=== PATIENT | male | born 1950 | race Caucasian/White ===

== ENCOUNTER 2017-06-03 23:06 | Inpatient (IN) | payer OTHER, BC ==
[2017-06-03] MEDS ORDERED: NS 1,000 ML IV ONE (23:27)
--- NOTE | 2017-06-03 23:27 | EDPHY ---
H & P Stated Complaint: SHAKEY,WEAK, HIGH IRREG HR, HTN, NOT EATING, FEVER AT [facility] HPI/ROS: HPI CHIEF COMPLAINT: Tachycardic, fever, from [facility] HISTORY OF PRESENT ILLNESS: This patient is 66 year male, resides at a local [facility] in a locked memory unit, they called his at home reports that he had a fever to 101.5 today. This associated fast heart rate and tachypnea. decided to bring him to the emergency room for evaluation. He is nonverbal. Upon arrival to the emergency room is noted to be tachycardic, tachypneic, nonverbal. reports that he does not appear to be in any distress. No reported vomiting or diarrhea. reports he did not really eat much today or yesterday. Past Medical History: Dementia, right bundle-branch block, history of AFib, nonverbal Past Surgical History: No recent surgery Social History: Denies daily use of drugs alcohol tobacco products. Dementia, resides in at [facility]. Family History: Noncontributory ROS REVIEW OF SYSTEMS: Review of systems extremely limited due the patient having dementia, and nonverbal. Exam Constitutional appears nontoxic triage nursing summary reviewed, vital signs reviewed, awake/alert. Vital signs are still noted to be tachycardic, tachypneic. Eyes normal conjunctivae and sclera, EOMI, PERRLA. HENT normal inspection, atraumatic, moist mucus membranes, no epistaxis, neck supple/ no meningismus, no raccoon eyes. Respiratory I do not appreciate any wheezing or rhonchi or rales, clear to auscultation bilaterally, normal breath sounds, no respiratory distress, no wheezing. Cardiovascular rate normal, regular rhythm, no murmur, no edema, distal pulses normal. Gastrointestinal large abdomen however, soft, non-tender, no rebound, no guarding, normal bowel sounds, no distension, no pulsatile mass. Genitourinary no CVA tenderness. Musculoskeletal no midline vertebral tenderness, full range of motion, no calf swelling, no tenderness of extremities, no meningismus, good pulses, neurovascularly intact. Skin pink, warm, & dry, no rash, skin atraumatic. No significant bilateral lower extremity edema. Neurologic awake, alert and oriented x 3, AAOx3, moves all 4 extremities equally, motor intact, sensory intact, CN II-XII intact, normal cerebellar, normal vision, nonverbal Psychiatric normal mood/affect. Heme/Lymph/Immune no lymphadenopathy. Differential Diagnosis: Includes but is not limited to in a particular order sepsis, dehydration, electrolyte disturbance, UTI, pneumonia, blood stream infection Medical Decision Making: Plan for this patient IV establishment fluid bolus, blood cultures, lactic acid, chest x-ray, urinalysis, check electrolytes, EKG for tachycardia and re-evaluate. Re-evaluation: EKG interpretation by me on record in [employer] system. Impression time of EKG 0029, this is sinus tachycardia rate of 123. Right bundle-branch block present. 0244AM: On re-examination at this time patient is noted to be tachycardic in the 140s. It is pretty regular indicating most likely a flutter. Two to 1 av block. The patient is not hypotensive. He is nonverbal. I did review his chest x-ray appears to be haziness in the left lower lobe concerning for pneumonia. Blood work has been reviewed. It is noted this patient had an initial elevated lactic acid. In the setting of tachycardia, elevated lactic acid and fever concerning for sepsis. Patient given 2 L normal saline up front due to sepsis however it was noted that his BNP is elevated. Will continue to gently hydrate. He has not been hypotensive. His x-ray does show cardiomegaly without infiltrate the left lower lung or haziness in the left lower lung. Concerning for pneumonia. Additionally is blood work shows a leukocytosis of 17,000. With a left shift. Concerning for infection. Blood cultures have been pulled. Lactic acid is been trended and is coming down after IV fluids. The patient was noted to be tachycardic upon arrival here however he now appears to be in a flutter with increase in his heart rate in the 140s. His EKG shows right bundle branch block with heart rate of 144 concerning for atrial flutter with a 2-1 av block. EKG interpretation by me on record in [employer] system. Impression time of EKG 2:33 a.m., this is atrial flutter to AV block. Rate of 144. Underlying right bundle-branch block present. Additionally on review his blood work his potassium was elevated however this is hemolyzed specimen. Will repeat his BMP. Additionally patient noted to have elevated troponin and BNP. I did order a CT angiogram of his chest due to hypoxia and tachycardia however the patient is somewhat difficult to manage due to his advanced dementia. He will not tolerate lying on the CT scan table. Nor does he allow us to put him on the CT scanner. He additionally refuses to wears pulse ox and takes it off often. He picks and pulls at his lines. Given how sick is I do not feel that we need to sedate him as I feel this would be greater risk given his tachycardia , sepsis, fever, white count. I feel this time we can forego his CT scan angiogram of his chest treat his atrial flutter, sepsis, pneumonia. Broad-spectrum antibiotics have been given. He has received IV fluids. The patient will need to be admitted the ICU was requires a large amount of attention given his underlying dementia and how sick he is. Of note. His lactic acid is improving. He is not hypotensive. Critical Care: Total Critical Care Time Spent Managing this Patient: 85Minutes. This time was spent Exclusively with this patient. This Care was exclusive of procedures. The Organ System/life at risk was cardiac, pulmonary This Patient was in Critical Condition because sepsis, acute febrile illness, hypoxia, tachycardia. 0258AM: Repeat chest x-ray shows cardiomegaly and pulmonary vascular congestion with pulmonary edema. Concerning for heart failure. I do not appreciate the left lower lobe infiltrate was on the previous x-ray. The patient is not hypoxic. He is in no respiratory distress. May need to give him IV Lasix at this time. 0259: Patient is very complex. History of dementia nonverbal. He cannot tell you where he hurts. Or how he feels. I do believe he is septic. I think it is probably from pneumonia. His urinalysis is still pending. He is in a flutter versus AFib on his EKG. Diltiazem has been started. Repeat chest x- ray shows cardiomegaly with pulmonary edema. Concerning for heart failure. He does have an elevated BNP. Most likely give him a dose of Lasix as well. Given how complex he is and limited mental state he will need to be admitted to the ICU. He often pulls at his IV lines and does not wear his pulse ox monitor. I updated his at bedside. Broad-spectrum antibiotics were given. 0334: I have consult the hospitalist service. Plan will be for admission for ICU care. Patient requires a lot of bedside nursing care. Additionally I have ordered him 40 mg IV Lasix due to the pulmonary edema and cardiomegaly seen on his chest x-ray. He has not been hypotensive I think he will benefit from the Lasix. Urinalysis still pending. However broad-spectrum antibiotics already been given. I believe this patient has a mixed picture sepsis versus decompensated heart failure picture Source: Patient - Personal History Current Tetanus/Diphtheria Vaccine: Yes - Medical/Surgical History Hx Asthma: No Hx Chronic Respiratory Disease: No Hx Diabetes: No Hx Cardiac Disease: No Hx Renal Disease: No Hx Cirrhosis: No Hx Alcoholism: No Hx HIV/AIDS: No Hx Splenectomy or Spleen Trauma: No Other PMH: sleep apnea,hyperlipidemia, AFIB, DEMENTIA - Social History Smoking Status: Never smoked Constitutional: Initial Vital Signs Temperature (C) 37.6 C 06/03/17 23:14 Heart Rate 125 H 06/03/17 23:14 Respiratory Rate 36 H 06/03/17 23:14 Blood Pressure 142/104 H 06/03/17 23:14 O2 Sat (%) 89 L 06/03/17 23:14 O2 Delivery Mode Room Air Allergies/Adverse Reactions: No Known Allergies Allergy (Unverified 06/03/17 23:12) Home Medications: Medication Instructions Recorded Donepezil HCl [Aricept 5 MG (*)] 10 mg PO DAILY 06/03/17 traZODone [traZODONE 50MG (*)] 50 mg PO HS 06/04/17 Medical Decision Making - Data Points Laboratory Results: Laboratory Results 06/03/17 23:50 06/04/17 02:55 Microbiology Results: MICROBIOLOGY 06/04/17 03:02 Nasal, Sinus - Swab Respiratory Panel (PCR) - Final No Organism Detected Medications Given: Enoxaparin Sodium (Lovenox) 120 mg SC BID@0600,1800 DELANEY Stop: 12/01/17 17:59 Last Admin: 06/04/17 19:21 Dose: 120 mg Haloperidol Lactate (Haldol Injection) 2 mg IVP Q6HRS PRN PRN Reason: Agitation Stop: 12/01/17 15:33 Last Admin: 06/04/17 17:51 Dose: 2 mg Piperacillin/Tazobactam/Dextrose (Zosyn 3.375 Gm (Premix)) 50 mls @ 100 mls/hr IV Q6HRS DELANEY PRN Reason: Protocol Stop: 07/04/17 07:59 Last Admin: 06/05/17 00:16 Dose: 50 mls Metoprolol Tartrate (Lopressor) 12.5 mg PO TID [facility] Stop: 12/01/17 16:59 Last Admin: 06/04/17 21:05 Dose: 12.5 mg Trazodone HCl (Trazodone) 50 mg PO HS [facility] Stop: 12/01/17 20:59 Last Admin: 06/04/17 21:05 Dose: 50 mg Discontinued Medications Digoxin (Lanoxin Injections) 300 mcg IVP ONCE ONE Stop: 06/04/17 04:43 Last Admin: 06/04/17 05:25 Dose: 300 mcg Diltiazem HCl (Cardizem 25 Mg/5 Ml Vial) 15 mg IVP EDNOW ONE Stop: 06/04/17 02:39 Last Admin: 06/04/17 02:53 Dose: 15 mg Furosemide (Lasix Injection) 40 mg IVP EDNOW ONE Stop: 06/04/17 03:34 Last Admin: 06/04/17 03:43 Dose: 40 mg Sodium Chloride (Ns) 1,000 mls @ 0 mls/hr IV EDNOW ONE; Wide Open PRN Reason: Protocol Stop: 06/03/17 23:28 Last Admin: 06/04/17 00:07 Dose: 1,000 mls Vancomycin/Sodium Chloride (Vancomycin 1 Gm (Premix)) 250 mls @ 250 mls/hr IV EDNOW ONE PRN Reason: Protocol Stop: 06/04/17 01:39 Last Admin: 06/04/17 00:54 Dose: 250 mls Piperacillin/Tazobactam/Dextrose (Zosyn (Premix)) 100 mls @ 200 mls/hr IV EDNOW ONE PRN Reason: Protocol Stop: 06/04/17 01:09 Last Admin: 06/04/17 02:36 Dose: 100 mls Sodium Chloride (Ns) 1,000 mls @ 0 mls/hr IV ONCE ONE PRN Reason: Wide Open Stop: 06/04/17 00:43 Last Admin: 06/04/17 00:54 Dose: 1,000 mls Diltiazem HCl 125 mg/ Dextrose 125 mls @ 0 mls/hr IV EDNOW ONE; Titrate PRN Reason: Protocol Stop: 06/04/17 02:39 Last Admin: 06/04/17 03:05 Dose: 125 mls Diltiazem HCl 125 mg/ Dextrose 125 mls @ 0 mls/hr IV CONT DELANEY; Per Protocol PRN Reason: Protocol Stop: 12/01/17 04:59 Last Admin: 06/04/17 21:46 Dose: 125 mls Vancomycin HCl 1.25 gm/ (Dextrose) 250 mls @ 166.667 mls/hr IV Q8H DELANEY Stop: 07/04/17 08:59 Last Admin: 06/04/17 10:39 Dose: Not Given Metoprolol Tartrate (Lopressor Injection) 5 mg IVP ONCE ONE Stop: 06/04/17 06:27 Last Admin: 06/04/17 06:44 Dose: 5 mg Departure - Departure Disposition: [facility] Inpatient Acute Clinical Impression: Lactic acidosis, Hypoxia, Tachycardia Dementia Qualifiers: Dementia type: unspecified type Dementia behavioral disturbance: with behavioral disturbance Qualified Code(s): F03.91 - Unspecified dementia with behavioral disturbance Pneumonia Qualifiers: Pneumonia type: due to unspecified organism Laterality: left Lung location: lower lobe of lung Qualified Code(s): J18.1 - Lobar pneumonia, unspecified organism Sepsis Qualifiers: Sepsis type: sepsis due to unspecified organism Qualified Code(s): A41.9 - Sepsis, unspecified organism Atrial flutter Qualifiers: Atrial flutter type: typical Qualified Code(s): I48.3 - Typical atrial flutter Pulmonary edema Qualifiers: Chronicity: acute Qualified Code(s): J81.0 - Acute pulmonary edema Condition: Critical
[2017-06-04 00:09] LABS: % IMMATURE GRANULYOCYTES 0.5 % (0.0-1.1); ABSOLUTE IMMATURE GRANULOCYTES 0.09 10^3/uL (0.00-0.10); ADD DIFF? NO; ADD MORPH? NO; ADD SCAN? NO; ATYPICAL LYMPHOCYTE FLAG 0 (0-99); FRAGMENT RBC FLAG 10 (0-99); HEMATOCRIT 48.7 % (40.0-51.0); HEMOGLOBIN 16.8 g/dL (13.7-17.5); LEFT SHIFT FLG 10 (0-99); LIPEMIA HEMOLYSIS FLAG 90 (0-99); MEAN CELL HEMOGLOBIN 32.7 pg (27.9-34.1); MEAN CELL HEMOGLOBIN CONCENTR. 34.5 g/dL (32.4-36.7); MEAN CELL VOLUME 94.7 fL (81.5-99.8); MEAN PLATELET VOLUME 9.5 fL (8.7-11.7); PLATELET CLUMPS FLAG 20 (0-99); PLATELET COUNT 157 10^3/uL (150-400); RED BLOOD CELL COUNT 5.14 10^6/uL (4.40-6.38); RED CELL DISTRIBUTION WIDTH 13.5 % (11.5-15.2)
[2017-06-04 00:21] LABS: ALANINE AMINOTRANSFERASE 47 IU/L (21-72); ALBUMIN 3.9 g/dL (3.5-5.0); ALKALINE PHOSPHATASE 60 IU/L (38-126); ASPARTATE AMINOTRANSFERASE 54 IU/L (17-59); BILIRUBIN,TOTAL 2.6 mg/dL (0.1-1.4); BILIRUBIN-CONJUGATED 1.1 mg/dL (0.0-0.5); BILIRUBIN-UNCONJUGATED 1.5 mg/dL (0.0-1.1); MAGNESIUM 2.1 mg/dL (1.6-2.3); TOTAL PROTEIN 7.5 g/dL (6.3-8.2)
[2017-06-04 00:22] LABS: INR 1.37 (0.83-1.16); PROTIME(PATIENT) 16.9 SEC (12.0-15.0)
[2017-06-04 00:30] LABS: TROPONIN I 0.083 ng/mL (0.000-0.034)
--- NOTE | 2017-06-04 00:31 | CPEKG ---
Heart Rate: 123 RR Interval: 488 P-R Interval: 140 QRSD Interval: 150 QT Interval: 348 QTC Interval: 498 P [place]: 64 QRS [place]: 119 T Wave [place]: -58 EKG Severity - ABNORMAL ECG - EKG Impression: SINUS TACHYCARDIA WITH IRREGULAR RATE 107-155 EKG Impression: RIGHT BUNDLE BRANCH BLOCK EKG Impression: PACs NOTED Electronically Signed By: Santos Benitez 06-Jun-2017 11:49:50
[2017-06-04] MEDS ORDERED: PIPERACILLIN/TAZO 4.5 GM/DEX 100 ML IV ONE (00:40)
[2017-06-04] MEDS ORDERED: VANCOMYCIN HCL/NORMAL SALINE 250 ML IV ONE (00:40)
[2017-06-04] MEDS ORDERED: NS 1,000 ML IV ONE (00:42)
[2017-06-04] MEDS ORDERED: IOPAMIDOL (ISOVUE 370) 100 ML BTL IV ONE (01:09)
[2017-06-04 01:25] LABS: ANION GAP 15 mEq/L (8-16); CALCIUM 9.3 mg/dL (8.5-10.4); CARBON DIOXIDE 21 mEq/l (22-31); CHLORIDE 106 mEq/L (97-110); CREATININE 1.1 mg/dL (0.7-1.3); GLOMERULAR FILTRATION RATE > 60; GLUCOSE 189 mg/dL (70-100); POTASSIUM 5.9 mEq/L (3.5-5.2); SODIUM 142 mEq/L (134-144); SPECIMEN HEMOLYSIS 189
[2017-06-04 01:43] LABS: CK-MB INTERPRETATION NEGATIVE (NEGATIVE)
--- NOTE | 2017-06-04 02:35 | CPEKG ---
Heart Rate: 144 RR Interval: 417 QRSD Interval: 154 QT Interval: 332 QTC Interval: 514 QRS [place]: 111 T Wave [place]: -57 EKG Severity - ABNORMAL ECG - EKG Impression: ATRIAL FLUTTER WITH 2:1 AV BLOCK EKG Impression: RBBB AND LPFB EKG Impression: ATRIAL FLUTTER IS NEW IN COMPARISON TO PRIOR ECG Electronically Signed By: Santos Benitez 06-Jun-2017 11:50:13
[2017-06-04] MEDS ORDERED: DILTIAZEM 25 MG/5 ML VIAL IVP ONE (02:38)
[2017-06-04] MEDS ORDERED: DILTIAZEM 125 MG in D5W 125 ML IV ONE (02:38)
[2017-06-04 03:08] LABS: ANION GAP 15 mEq/L (8-16); CALCIUM 8.3 mg/dL (8.5-10.4); CARBON DIOXIDE 19 mEq/l (22-31); CHLORIDE 111 mEq/L (97-110); GLOMERULAR FILTRATION RATE > 60; GLUCOSE 158 mg/dL (70-100); POTASSIUM 4.2 mEq/L (3.5-5.2); SODIUM 145 mEq/L (134-144)
[2017-06-04] MEDS ORDERED: FUROSEMIDE 40 MG/4 ML VIAL IVP ONE (03:33)
[2017-06-04 03:41] LABS: PROCALCITONIN 0.17 ng/mL (0.02-0.10)
[2017-06-04] MEDS ORDERED: HYDROCODONE/APAP 5/325 TAB PO PRN (04:11)
[2017-06-04] MEDS ORDERED: ONDANSETRON 4 MG/2 ML VIAL IVP PRN (04:11)
[2017-06-04] MEDS ORDERED: LORazepam 0.5 MG TAB PO PRN (04:11)
[2017-06-04] MEDS ORDERED: DIGOXIN 500 MCG/2 ML AMP IVP ONE (04:42)
[2017-06-04 05:48] LABS: ALANINE AMINOTRANSFERASE 48 IU/L (21-72); ALBUMIN 3.6 g/dL (3.5-5.0); ALKALINE PHOSPHATASE 59 IU/L (38-126); ANION GAP 19 mEq/L (8-16); ASPARTATE AMINOTRANSFERASE 43 IU/L (17-59); BILIRUBIN,TOTAL 2.3 mg/dL (0.1-1.4); CALCIUM 8.4 mg/dL (8.5-10.4); CARBON DIOXIDE 17 mEq/l (22-31); CHLORIDE 109 mEq/L (97-110); CREATININE 1.1 mg/dL (0.7-1.3); GLOMERULAR FILTRATION RATE > 60; GLUCOSE 179 mg/dL (70-100); MAGNESIUM 1.9 mg/dL (1.6-2.3); POTASSIUM 4.1 mEq/L (3.5-5.2); SODIUM 145 mEq/L (134-144)
[2017-06-04 05:53] LABS: CK-MB INTERPRETATION NEGATIVE (NEGATIVE); CREATINE KINASE-MB FRACTION 2.89 ng/mL (0.00-3.19)
[2017-06-04 06:04] LABS: % IMMATURE GRANULYOCYTES 0.4 % (0.0-1.1); ABSOLUTE IMMATURE GRANULOCYTES 0.06 10^3/uL (0.00-0.10); ADD DIFF? NO; ADD MORPH? NO; ADD SCAN? NO; ATYPICAL LYMPHOCYTE FLAG 0 (0-99); FRAGMENT RBC FLAG 0 (0-99); HEMOGLOBIN 14.7 g/dL (13.7-17.5); LEFT SHIFT FLG 10 (0-99); LIPEMIA HEMOLYSIS FLAG 80 (0-99); MEAN CELL HEMOGLOBIN 31.5 pg (27.9-34.1); MEAN CELL HEMOGLOBIN CONCENTR. 33.4 g/dL (32.4-36.7); MEAN CELL VOLUME 94.2 fL (81.5-99.8); MEAN PLATELET VOLUME 9.8 fL (8.7-11.7); PLATELET CLUMPS FLAG 40 (0-99); PLATELET COUNT 91 10^3/uL (150-400); RED BLOOD CELL COUNT 4.67 10^6/uL (4.40-6.38); RED CELL DISTRIBUTION WIDTH 13.6 % (11.5-15.2)
[2017-06-04] MEDS ORDERED: METOPROLOL TARTRATE 5 MG/5 ML INJ IVP ONE (06:26)
[2017-06-04 06:28] LABS: BILIRUBIN-UNCONJUGATED 1.3 mg/dL (0.0-1.1)
--- NOTE | 2017-06-04 06:53 | GHP ---
[f rep st] HISTORY AND PHYSICAL DATE OF ADMISSION: 06/04/2017 SOURCE: Patient with history of advanced dementia with dysphagia. His is at bedside and supplements history. Case discussed with ED provider. CHIEF COMPLAINT: Fever. HISTORY OF PRESENT ILLNESS: This is a 66-year-old gentleman with history of advanced dementia, who presents to the emergency department from [facility] with complaints of fever. The patient apparently has not been taking any oral intake for the past 24 hours where he normally has quite a healthy appetite. reports that when she arrived to see the patient that he did sound congested and had noisy breathing. He appeared to have some increased work of breathing in addition. She denies any known knowledge of nausea, vomiting, diarrhea. Patient normally is mostly nonverbal and unable to provide any history. Prior to her arrival, the patient was also noted to have a fast, irregular heartbeat into the 120s. He has known history of atrial fibrillation for many decades now. He is not on any anticoagulation. reports this is usually really well controlled and so no consideration for Coumadin. Patient's primary senior pricing analyst, Dr. Froylan Degroot. REVIEW OF SYSTEMS: Limited, secondary to patient's dementia. The patient is unable to provide any and is otherwise negative, except as noted above per the . ALLERGIES: No known drug allergies. HOME MEDICATIONS: Aricept, temazepam and Tylenol p.r.n. PAST MEDICAL HISTORY: Significant for dementia, atrial fibrillation, AMERICO, morbid obesity, history of right bundle branch block on EKG and history of syncope in April 2016 without recurrence, with a negative workup including echocardiogram. PAST SURGICAL HISTORY: None. FAMILY HISTORY: Mother with history of COPD. Daughter with history of MS. Father with history of CHF, in his 80s. Brother is healthy. SOCIAL HISTORY: Patient is . He currently resides at [facility]. He does not smoke, drink, or do drugs. CODE STATUS: DNI. is MDPOA and MOST form accompanies the patient, which notes limited intervention, but does desire for full cardiac resuscitation if needed. No intubation. PHYSICAL EXAM: VITAL SIGNS: On arrival to the ED, blood pressure 142/104, heart rate 125, respiratory rate 36, O2 saturation 89% on room air with temperature 37.6. Vitals in the unit: Blood pressure 117/86, heart rate is 150 , respiratory rate 33, O2 saturation is 95% on room air. GENERAL: No acute distress. Morbidly obese adult male, is lying quietly in bed. HEAD: Normocephalic, atraumatic. EYES: Limited extraocular muscle exam secondary to patient ability to follow instructions. Sclerae are clear. No conjunctival injection or scleral icterus. ENT: Mucous membranes might be slightly dry. No nasal discharge. Limited exam again secondary to patient's inability to follow instructions or desire to follow instructions. NECK: Supple. Trachea midline. CV: Tachycardic. Distant heart sounds. No chest tenderness to palpation apparent. RESPIRATORY: Unlabored breathing. Lungs clear to auscultation bilaterally. No wheezes, rales, or rhonchi. Diminished at the bases. Poor inspiratory effort and limited secondary to patient ability to follow instructions. ABDOMEN: Obese, soft, nontender to palpation. There is no apparent tenderness to palpation. Positive bowel sounds. : No Nieto in place. Normal external male genitalia. EXTREMITIES: Patient with nonpitting lower extremity edema, 1+ pedal pulses. NEURO: Grossly nonfocal. The patient is able to move all extremities independently. He has no facial drooping and limited secondary to patient's ability to follow instructions. PSYCH: Patient is mostly nonverbal, may answer a few yes/no answers, but otherwise limited ability to cooperate. LABORATORY STUDIES: WBC 17.26, H and H 16.8 and 48.7, MCV is 94.7, platelet count is 157, neutrophil percent 81.6%. No bandemia. PT 16.9, INR is 1.37, PTT is 27.0. Serum lactic acid 3.0, decreased down to 2.5 after intervention in the ER. Sodium is 142, potassium is 5.9, chloride is 106, CO2 is 21, anion gap 15, BUN is 22, creatinine is 1.1, GFR is greater than 60, glucose is 189, total bilirubin is 2.6. CK 306. Troponin 0.083. , lipase 49. Procalcitonin 0.17. Negative flu. Initial chest x-ray in the emergency department, reviewed by myself, shows some cardiomegaly with perihilar prominence and pulmonary vascular congestion, left lateral lower lungs with some haziness present. Repeat chest x-ray is slightly rotated showing cardiomegaly with increased pulmonary vascular congestion without focal consolidation. Final radiology report is pending. EKG, reviewed myself, showing A-flutter, right bundle branch and left posterior fascicular block. QTc 514. ASSESSMENT AND PLAN: A 66-year-old gentleman with history of advanced dementia and aphasia who presents following episode of fever and tachycardia [facility]. 1. Atrial flutter with rapid ventricular response. Patient is status post bolus of Cardizem and currently titrated up to maximum of 15 mg/hour. His heart rate remains in the 150s. Limited ability to assess for additional symptoms or cardiac symptoms including chest pain secondary to patient's advanced dementia. We will add a dose of IV digoxin. Hold off on anticoagulation. This was discussed with the patient's . He does not have a history of heart failure. He has been at increased risk for embolic event. However, at this time declines anticoagulation. 2. Sepsis. Patient meets criteria with leukocytosis, tachycardia, tachypnea and elevated lactate. Blood pressures at this time are acceptable. We will monitor closely with a Cardizem drip. Patient is status post 2 L of IV fluid with apparent decompensation in respiratory status, concerning for possibly a CHF component. He remains tachycardic with atrial flutter, rapid ventricular response. Blood cultures have been obtained. Patient is status post vancomycin and Zosyn in the emergency department for presumptive pneumonia given patient's reported history of symptoms from the . Awaiting urine sample. The patient will not tolerate a catheter placement. Additionally, attempts were made for patient to undergo CT evaluation for further delineation of possible infectious process. However, patient did not tolerate lying flat for this study. 3. Pneumonia. Continue with vancomycin and Zosyn at this time. 4. Hypoxia related to pneumonia versus pulmonary edema. We will continue to monitor. 5. Lactic acidosis. Continue to monitor lactates until less than 2. Status post IV fluids in the emergency department. 6. Hyperglycemia, nonfasting labs noted. Continue to monitor blood sugars. This patient will be nothing per mouth. 7. Hyperbilirubinemia in setting of systemic inflammatory response syndrome sepsis. Continue to monitor liver function tests. 8. Elevated BTNP. Patient without a previous history of congestive heart failure. He had an echocardiogram completed in 04/2016, which did not show any systolic or diastolic dysfunction. The patient received 40 mg of Lasix several hours after his 30 mL/kg bolus, given the patient's worsening respiratory status and concern for pulmonary edema. We will continue to monitor clinically. 9. Dementia. Continue Aricept. 10. Obstructive sleep apnea. Supplemental oxygen if tolerated. Patient no longer has been tolerating CPAP and this was previously discontinued. 11. Insomnia. Continue with temazepam p.r.n. 12. Fluid, electrolyte and nutrition. Status post 30 mL per kg. Replace electrolytes as needed. 13. Nutrition. Patient will be nothing per mouth at this time, as he is increasingly confused and unable to follow swallow assessment instructions. 14. Prophylaxis. Holding anticoagulation, sequential compression devices as tolerated. Discussed again with the regarding increased risk for thromboembolic events in setting of uncontrolled atrial flutter with rapid ventricular response. She desires to continue without anticoagulation as patient has previously been without and she is concerned regarding falls. CODE STATUS: Full. Cardiac resuscitation, no intubation at this time. is Kristie is MDPOA. DISPOSITION: The patient admitted to inpatient status in the ICU. He is acutely ill, requires some ICU care. CONSULTATIONS: Crit Care, ID and Cardiology in the morning. Addendum - Cardiology was consulted and case discussed with them in early . No additional recommendations for rate control, to continue cardizem, aware s/p digoxin bolus. may attempt beta papo or amiodarone but focus on treatment of sepsis. elevated HR acceptable as long as BPs maintained /[id number]/MODL MTDD
[2017-06-04] MEDS: PIPERACILLIN/TAZO 3.375 GM/DEX 50 ML IV SCH ×3 (08:23→17:51)
[2017-06-04] MEDS ORDERED: VANCOMYCIN 1.25 GM in D5W 250 ML IV SCH (09:00)
--- NOTE | 2017-06-04 13:57 | PDMN ---
Medical Necessity Medical necessity: est los >2 mn for aflutter w/RVR, sepsis, pna vs pulmonary edema, hyperglycemia, admit to ICU for IVF/abx, Cardizem gtt; comorbid advanced dementia, AFIB, AMERICO; per H&P & order 06/04/17
--- NOTE | 2017-06-04 14:01 | ASMTCMCOM ---
CM Note CM Note Notes: Chart reviewed. Patient admitted with pneumonia from [facility] where he resides. His is very involed. She reports he is brighter today than he has been in weeks. . He will likely dc back to [facility] upon dc. CM available should needs arise. Date Signed: 06/04/2017 02:01 PM Electronically Signed By:Christina Kim RN
[2017-06-04] MEDS: DILTIAZEM 125 MG in D5W 125 ML IV SCH ×2 (14:40→21:46)
[2017-06-04] MEDS ORDERED: OLANZapine DISINTEGR 5 MG TAB PO PRN (15:21)
--- NOTE | 2017-06-04 15:27 | HOSPPROG ---
Hospitalist Progress Note Assessment/Plan: * Rapid afib -still rapid rate despite IV diltiazem gtt -consult cardiology - d/w Dr. Tovar -anticoagulation declined by -CT chest attempt but patient unable to comply -check BLE US rule out DVT * Advanced dementia -at baseline per -refuses multiple interventions including BP checks and lab draw -this makes caring for this patient very difficult -palliative care consult - clarify goals of care * Possible aspiration PNA -IV Zosyn -procalcitonin only mildly elevated * Possible severe sepsis - lactate elevated -unable to re-draw lactate level after fluid bolus * Acute on chronic diastolic CHF -CHF developed after IVF bolus for sepsis, s/p IV lasix -hold off on further IVF * Obesity BMI 37 * Acute agitation -prn anti-psychotics may be necessary to get him compliant with necessary care * Borderline troponin elevation -likely strain due to rapid rate -refuses any further blood draws CC time - 45 minutes Subjective: no complaints. Objective: Vital Signs Temp Pulse Resp BP Pulse Ox 37.3 C 111 H 37 H 118/68 91 L 06/04/17 04:56 06/04/17 15:00 06/04/17 15:00 06/04/17 12:00 06/04/17 15:00 Laboratory Results 06/04/17 05:50 06/04/17 05:10 06/03/17 06/04/17 06/05/17 05:59 05:59 05:59 Intake Total 2500 Output Total 250 Balance 2250 PT 16.9 SEC (12.0-15.0) H 06/03/17 23:50 INR 1.37 (0.83-1.16) H 06/03/17 23:50 d/w Dr. Turcios - no indication for IV Vanco - she will DC - no obvious need for ID consult at this time tele - rapid afib - HR currently > 130 CXR viewed, my personal interpretation is - CHF vs. PNA - Physical Exam Constitutional: no apparent distress, appears nourished, not in pain Cardiovascular: no murmur, rub, or gallop, irregularly irregular, edema Respiratory: no respiratory distress, no rales or rhonchi, clear to auscultation Gastrointestinal: normoactive bowel sounds, soft, non-tender abdomen, no palpable masses Skin: no rashes or abrasions, no fluctuance, no induration Neurologic: No AAOx3 Psychiatric: encephalopathic, agitated, poor insight, poor judgement, poor memory ICD10 Worksheet Patient Problems: Problems Problem Status Onset Atrial flutter Acute Dementia Acute Hypoxia Acute Lactic acidosis Acute Pneumonia Acute Pulmonary edema Acute Sepsis Acute Tachycardia Acute Near syncope Acute
[2017-06-04] MEDS ORDERED: NS 1,000 ML IV SCH (15:30)
[2017-06-04] MEDS ORDERED: HALOPERIDOL LACT 5 MG/ML INJ IVP PRN (15:34)
[2017-06-04] MEDS ORDERED: LORazepam 2 MG/ML INJ IVP PRN (15:37)
[2017-06-04] MEDS: METOPROLOL TARTRATE 25 MG TAB PO SCH ×2 (17:51→21:05)
[2017-06-04] MEDS: ENOXAPARIN 120 MG/0.8 ML SYR SC SCH (19:21)
[2017-06-04] MEDS: traZODone 50 MG TAB PO SCH (21:05)
--- NOTE | 2017-06-04 21:48 | GCON ---
[f rep st] CONSULTATION CARDIOLOGY CONSULT DATE OF CONSULTATION: 06/04/2017 PRIMARY CASING COOKER: Froylan Degroot MD. CHIEF COMPLAINT: Atrial fibrillation. HISTORY OF PRESENT ILLNESS: We were asked by Dr. Kat to visit with this patient. The patient is a 66-year-old male with advanced dementia, who is essentially nonverbal. He lives at [facility]. He was admitted through the ER with fever and decreased oral intake. In the [facility] department, he was found to be in atrial fibrillation with rapid ventricular response. He was started on diltiazem drip, given a single dose of digoxin, IV metoprolol as well as IV Lasix. He was admitted and started on antibiotics for sepsis protocol. He received IV fluids. He was diagnosed w ith pneumonia. Despite diltiazem drip, he has continued to have intermittent rapid rates. Upon my evaluation, the p atient does not answer any questions nor does he cooperate fully with my exam. REVIEW OF SYSTEMS: Unable as the patient is severely demented. PAST MEDICAL HISTORY: Is from chart review. 1. Dementia. 2. Atrial fibrillation. 3. Sleep apnea. 4. Right bundle branch block. OUTPATIENT MEDICATIONS: Aricept, temazepam, Tylenol p.r.n., benazepril and trazodone. ALLERGIES: No known drug allergies. SOCIAL HISTORY: The patient lives in a memory care facility. He is . FAMILY HISTORY: Not applicable to the current case. PHYSICAL EXAM: VITAL SIGNS: Blood pressure 117/88, heart rate 104, oxygen saturation 94% on room ai r. Respiratory rate is 29. Temp T-max has been 37.6. GENERAL: This is a well-developed and well-n ourished, nonverbal older male. HEENT: Sclerae are clear and free of jaundice. Mucous members are moist. Normocephalic, atraumatic. CARDIOVASCULAR: JVP less than 10. Irregularly irregular tachyca rdic rhythm without murmur or rub. No S3. LUNGS: As far as he is cooperative with exam are clear, but again he is not taking deep breaths. ABDOMEN: Soft and nontender. EXTREMITIES: Warm without e hayden. LABORATORY DATA: White count 14.3, hematocrit 44, and platelets are 91. INR 1.37. Sodium 145, pota ssium 4.1, chloride 17, bicarb 19, BUN 21, creatinine 1.1, glucose 179, total bilirubin 2.3. CK is 3 59, troponin 0.083 and BNP is 5040. TSH is normal. EKG reviewed by me shows right bundle branch block. His initial EKG may be sinus tachycardia. Subse quent EKG is likely 2:1 atrial flutter. Chest x-ray reviewed by me shows cardiomegaly with mild CHF. He had an echocardiogram in April 2016 with normal LV size and systolic function. Moderate left atrial dilation. Mild valvular aortic stenosis. ASSESSMENT AND PLAN: This is a 66-year-old male with severely advanced dementia, presenting with sep sis picture, possibly due to pneumonia. In this setting, he has rapid atrial fibrillation. He does not appear uncomfortable and is not hemodynamically stable, presents with atrial flutter. 1. Atrial flutter: Continue IV diltiazem. I have added oral beta blockers. I do not think he is a candidate for anticoagulation given his advanced dementia. If we cannot rate control with medicatio ns could consider cardioversion, but I would like to avoid this given the fact that I do not think he is a candidate for long-term anticoagulation. Could also consider additional digoxin if we are havi ng trouble with rate control. 2. Sepsis/possible pneumonia: Followed by Internal Medicine. 3. History of right bundle branch block: This is chronic. 4. Dementia: He is on Aricept. Thank you for allowing us to participate in his care. We will follow with you. /[id number]/MODL
[2017-06-04 22:22] LABS: COLOR YELLOW; LEUKOCYTE ESTERASE,URINE NEGATIVE (NEGATIVE); NITRITE,URINE NEGATIVE (NEGATIVE)
[2017-06-04 22:27] LABS: MUCUS TRACE /lpf (NONE-1+)
[2017-06-05] MEDS: PIPERACILLIN/TAZO 3.375 GM/DEX 50 ML IV SCH ×4 (00:16→17:07)
[2017-06-05] MEDS: ENOXAPARIN 120 MG/0.8 ML SYR SC SCH ×2 (05:54→17:14)
[2017-06-05] MEDS: METOPROLOL TARTRATE 25 MG TAB PO SCH ×3 (09:14→21:45)
[2017-06-05] MEDS: DONEPEZIL HCL 5 MG TAB PO SCH (09:14)
[2017-06-05] MEDS: ACETAMINOPHEN 325 MG TAB PO PRN ×2 (09:17→21:45)
--- NOTE | 2017-06-05 10:05 | WOCRNPDOC ---
WOCRN Advanced Assessment Note - Skin Integrity Problem, Advanced Assess Scrotum Incont Assoc Dermatitis Dressing Type: Open to Air Nori Wound Tissue: Erythema, Raw, Denuded Wound Bed Color: [place] Wound Bed Constitution: Smooth Tissue Skin Integrity Problem Comment: Patient non-verbal and unwilling to allow this RN to fully assess the area. The areas that are observed, appear red and moist, likely related to the patient's incontinence. Patient also noted to frequently place his hand to the area - unsure if this is related to modesty or discomfort. Will order BID clear zinc to area but staff may want to enlist assistance of with this task as he may be more willing to allow her to help.
--- NOTE | 2017-06-05 13:32 | PDCARPN ---
Cardiology Progress Note Assessment/Plan: Assessment/plan: 66-year-old male with advanced dementia and atrial fib/atrial flutter. Admitted with fever and a sepsis like syndrome. He possible pneumonia. Has been started on low-dose beta-papo. 1. Atrial arrhythmia: He has preserved ejection fraction based on echocardiogram a year ago. Continue oral beta-papo. With a 12 lead EKG is underlying rhythm is hard to tell whether it sinus tachycardia atrial flutter. Could up titrate beta blockers if he remains above 100 beats per minute. He has been started on full-dose Lovenox for lower extremity DVT. He is a patient of Dr. Hurd. 2. Fever/possible aspiration pneumonia: On antibiotics. 3. Dementia: This is advanced. 4. DVT: He is now on Lovenox. 5. Hypoxia: He does have DVTs but has not had a chest CT due to compliance issues. May have PE Versus aspiration pneumonia We will sign off. Please call with questions. 06/05/17 13:39 Subjective: He does not answer my questions Objective: Vital Signs (8 Hrs) Temp Pulse Resp BP Pulse Ox 06/05/17 12:42 36.9 C 06/05/17 12:40 78 L 06/05/17 12:00 103 H 28 H 122/76 H 85 L 06/05/17 09:25 77 L 06/05/17 08:00 37.9 C 118 H 34 H 110/67 Intake/Output (24 Hrs) 06/04/17 06/05/17 06/06/17 05:59 05:59 05:59 Intake Total 2500 1385 Output Total 250 Balance 2250 1385 Intake: Oral (ml) 0 700 IV Intake (ml) 295 IV Infused (ml) 2500 390 Diltiazem 125 mg In D5w 290 125 ml @ Per Protocol IV CONT DELANEY Rx#:[id number] Piperacillin/Tazo 3.375 100 gm/Dex 50 ml @ 100 mls/hr IV Q6HRS DELANEY Rx#: [id number] Output: Urine (ml) 250 Urinal 250 Other: Weight 122.6 kg Number of Voids 0 Incontinence 2 3 Number of Stools Incontinence 1 nonverbal. Sleeping in bed. Regular tachycardic rhythm. No murmur Lungs clear No edema Result Diagrams: 06/04/17 05:50 10/18/17 05:10 Cardiac Labs: Cardiac Lab Results (72 Hrs) 06/04/17 06/04/17 21:00 05:10 CK-MB (CK-2) Fraction 2.89 Troponin I 0.039 H Telemetry: ST vs AFL ICD10 Worksheet Patient Problems: Problems Problem Status Onset Dementia Acute Near syncope Acute Lactic acidosis Acute Hypoxia Acute Pneumonia Acute Tachycardia Acute Sepsis Acute Atrial flutter Acute Pulmonary edema Acute
--- NOTE | 2017-06-05 14:29 | ASMTCMCOM ---
CM Note CM Note Notes: Palliative Care consult ordered. D/W who said that tomrrow at 1 pm would work for her; sent msg to [facility] palliative NITROGLYCERIN SUPERVISOR and chaplain Jose Antonio to confirm time. Pt lies at [facility] ([phone]); m for Troy there to discuss. Pt's , Kristie said that pt does well at [facility]. D/W Dr vargas and RN. Date Signed: 06/05/2017 02:28 PM Electronically Signed By:Antonia Wilkinson, RN
--- NOTE | 2017-06-05 15:25 | HOSPPROG ---
Hospitalist Progress Note Assessment/Plan: * Rapid afib -continue PO metoprolol per cardiology -can up-titrate further if needed for HR > 100 * Advanced dementia -at baseline per -refuses multiple interventions including BP checks and lab draw -this makes caring for this patient very difficult -palliative care consult - clarify goals of care * Possible aspiration PNA -IV Zosyn -procalcitonin only mildly elevated -recheck CXR in am * Acute respiratory failure - refuses to wear O2 * Possible severe sepsis - lactate elevated -unable to re-draw lactate level after fluid bolus * Acute on chronic diastolic CHF -CHF developed after IVF bolus for sepsis, s/p IV lasix -hold off on further IVF * Bilateral LE DVT - may also have element of PE -SQ Lovenox - transition to Eliquis at discharge * Obesity BMI 37 * Acute agitation -d/w - she is okay with anti-psychotic med tx to increase compliance -start Zyprexa low dose BID * Borderline troponin elevation -likely strain due to rapid rate -refuses any further blood draws High risk situation as patient hypoxic but refusing to wear his O2. Won't keep on tele monitor. Discussed COR status with . She stated they had a discussion about this 6-7 years ago when he stated he wanted everything. She acknowledged that at that time he had no inkling what severe dementia he would have at this time. I educated that as his POA she must make decisions for him now that his current situation is known, based he knowledge of his priorities as a person, based on who he was when he had his faculties. She became very tearful and paralyzed with the thought of changing his status at this time. Palliative care meeting set for 1pm tomorrow. I encouraged her think about this further before meeting tomorrow. Subjective: Not wearing O2 Objective: Vital Signs Temp Pulse Resp BP Pulse Ox 36.9 C 103 H 28 H 122/76 H 78 L 06/05/17 12:42 06/05/17 12:00 06/05/17 12:00 06/05/17 12:00 06/05/17 12:40 Laboratory Results 06/04/17 05:50 06/04/17 05:10 06/04/17 06/05/17 06/06/17 05:59 05:59 05:59 Intake Total 2500 1385 Output Total 250 Balance 2250 1385 PT 16.9 SEC (12.0-15.0) H 06/03/17 23:50 INR 1.37 (0.83-1.16) H 06/03/17 23:50 Discussed with Tosha Quintanilla Palliative care OFFICE CORRESPONDENT - she is aware of risk FULL COR status in patient we are providing suboptimal care. DNR more appropriate given situation. - Time Spent With Patient Time Spent with Patient: greater than 35 minutes Time Spent with Patient: Greater than 35 minutes spent on this patients care, greater than 50% of time spent counseling, educating, and coordinating care regarding the above mentioned plan. - Physical Exam Constitutional: no apparent distress, appears nourished, not in pain Cardiovascular: regular rate and rhythym, no murmur, rub, or gallop Respiratory: no respiratory distress, no rales or rhonchi, clear to auscultation Gastrointestinal: normoactive bowel sounds, soft, non-tender abdomen, no palpable masses Skin: no rashes or abrasions, no fluctuance, no induration Neurologic: No AAOx3 Psychiatric: encephalopathic, agitated, poor insight, poor judgement, poor memory ICD10 Worksheet Patient Problems: Problems Problem Status Onset Atrial flutter Acute Dementia Acute Hypoxia Acute Lactic acidosis Acute Pneumonia Acute Pulmonary edema Acute Sepsis Acute Tachycardia Acute Near syncope Acute
[2017-06-05] MEDS: IPRATROPIUM/ALBUTEROL 3 ML DEYVIAL IH SCH ×2 (16:53→22:31)
[2017-06-05] MEDS: OLANZapine 2.5 MG TAB PO SCH (21:45)
[2017-06-05] MEDS: traZODone 50 MG TAB PO SCH (21:45)
[2017-06-06] MEDS: PIPERACILLIN/TAZO 3.375 GM/DEX 50 ML IV SCH ×5 (04:12→20:03)
[2017-06-06] MEDS: ENOXAPARIN 120 MG/0.8 ML SYR SC SCH ×2 (04:49→18:49)
[2017-06-06] MEDS: IPRATROPIUM/ALBUTEROL 3 ML DEYVIAL IH SCH ×4 (05:58→23:57)
[2017-06-06] MEDS: METOPROLOL TARTRATE 25 MG TAB PO SCH ×3 (08:48→22:14)
[2017-06-06] MEDS: OLANZapine 2.5 MG TAB PO SCH ×2 (08:49→22:15)
[2017-06-06] MEDS: ACETAMINOPHEN 325 MG TAB PO PRN (08:50)
[2017-06-06] MEDS ORDERED: FUROSEMIDE 80 MG TAB PO ONE (08:57)
[2017-06-06] MEDS: DONEPEZIL HCL 5 MG TAB PO SCH (10:16)
[2017-06-06] MEDS ORDERED: ALTEPLASE 2 MG VIAL IVP PRN (14:36)
[2017-06-06] MEDS ORDERED: LORazepam 2 MG/ML INJ IVP PRN (14:45)
--- NOTE | 2017-06-06 15:32 | PDPCPN ---
Palliative Care Progress Note Assessment/Plan: Referring provider: Dr Kat Reason for consult: Complex medical decision making Symptom control HPI: Artis Duvall is a 66 yo male with PMH frontotemporal dementia admitted to the hospital for fevers. Being treated for possible asp PNA as well as new bilateral DVT, a fib RVR, and acute on chronic diastolic CHF. Non compliant with medical interventions here due to his dementia. Clinically not improving much due to not wanting any procedures or medications at times. Palliative care consulted for complex medical decision making. Met with Kristie at the bedside this afternoon. She shared their story of their life. Gloria was dx with dementia 3 years ago and they recently moved closer to their daughter here in [place]. She states [facility] at [facility] for the past 2 months due to her health problems and inability to safely care for Gloria at home. He typically does ok there with walking and eating. He has no short term memory and limited verbal skills which makes it difficult for him. We discussed his medical conditions with unstable clinical condition and needs for continued aggressive interventions to improve his status. She wants to continue with medical interventions even if it means sedating Gloria to help him get better. She states he has never liked tubes/ drains and wants to try to find options that work with both healing Gloria as well as his distaste for medical equipment. We spoke about code status and she was clear if his heart stops or his breathing got worse she would not want aggressive interventions but would want continued antibiotics, medications, and PICC line to help see if he can improve. Assessment: Physical: - Pain: none -tylenol PRN - norco PRN - Dyspnea: - oxygen as needed - treatment for PNA and acute CHF - constipation - at risk if using opiates senna if using norco Emotional/psychological: acute encephalopathy: - on yprexa 2.5 BID - haldol or zyprexa PRN - ativan PRN - maintain normal routines Advanced Care Planning: Is patient decisional?: No Code Status: DNR/DNI POA: is MDPOA Plan: continue medical management with hopes of improvement but no CPR or intubation. Possible SNF/rehab stay at discharge for increased care needs. Palliative care to follow Subjective: shakes head yes to no to questions Objective: Social History: to Kristie. Has a doctorate degree in computer science. Born in [place] but attended grad school in [place] before moving to [place]. Loves to sail boats. Medication list reviewed ROS: General: fatigue, weakness ENT: negative Resp: dyspnea, cough GI: poor appetite : negative MS: negative Skin: negative Neuro:negative Psych: agitation at times Functional assessment: PPS: 50% Functional status: at baseline just needs assistance with ADLs, ambulates independently. Now dependent on most ADLs Vital Signs Temp Pulse Resp BP Pulse Ox 36.9 C 90 34 H 126/62 H 95 06/06/17 11:09 06/06/17 11:09 06/06/17 11:09 06/06/17 11:09 06/06/17 11:13 Microbiology 06/04/17 05:00 Urine Culture - Final Urine,Clean Catch Three [place] Types Laboratory Results 06/04/17 05:50 06/04/17 05:10 06/05/17 06/06/17 06/07/17 05:59 05:59 05:59 Intake Total 1385 850 Balance 1385 850 PT 16.9 SEC (12.0-15.0) H 06/03/17 23:50 INR 1.37 (0.83-1.16) H 06/03/17 23:50 Physical Exam - Physical Exam General Appearance: alert, no apparent distress Respiratory: No respiratory distress, No accessory muscle use Skin: normal color, warm/dry Extremities: No pedal edema Neuro/Psych: alert, other (esstentially non verbal but does shake head yes/no) ICD10 Worksheet Patient Problems: Problems Problem Status Onset Atrial flutter Acute Dementia Acute Hypoxia Acute Lactic acidosis Acute Palliative care encounter Acute Pneumonia Acute Pulmonary edema Acute Sepsis Acute Tachycardia Acute Near syncope Acute - ICD10 Problem Qualifiers (1) Palliative care encounter
--- NOTE | 2017-06-06 16:58 | ASMTCMCOM ---
CM Note CM Note Notes: Pt transferred to ICU today, will have picc placed so that he can cont w/IV ABX's. Had palliative care conf today (see palliative note). Updated Jennifer at [facility]. She reported to me that they will likely need him to do SNF rehab stay prior to return to their facility given how sick he has been. RAMESH can discuss with pt's over weekend. Jennifer from [facility] also reported that pt has PICA eating disorder tendencies; I reported this to Dr Kat as well as to SULEIMAN Montgomery RN in ICU as pt has just transferred over there. RAMESH w/f. Date Signed: 06/06/2017 04:57 PM Electronically Signed By:Antonia Wilkinson RN
--- NOTE | 2017-06-06 17:47 | HOSPPROG ---
Hospitalist Progress Note Assessment/Plan: * Acute respiratory failure -CXR this am much worse, possible lobar collapse vs. effusion -non-compliant with O2 - sats 70% RA * Rapid afib -continue PO metoprolol per cardiology -can up-titrate further if needed for HR > 100 * Advanced dementia with acute metabolic encephalopathy -refuses multiple interventions including BP checks and lab draw -this makes caring for this patient very difficult -palliative care consult - changed COR status to DNR but otherwise wants full tx -tx to ICU - refusing everything and not getting any care on floor -unclear to what degree he understands the consequences of this refusal - okay with low dose anti-psychotics to reduce agitation * Possible aspiration PNA -IV Zosyn -procalcitonin only mildly elevated -recheck CXR in am * Possible severe sepsis - lactate elevated -unable to re-draw lactate level after fluid bolus * Acute on chronic diastolic CHF -CHF developed after IVF bolus for sepsis -continue IV lasix -consider ECHO if he becomes more compliant * Bilateral LE DVT - may also have element of PE -SQ Lovenox - transition to Eliquis at discharge * Obesity BMI 37 * Borderline troponin elevation -likely strain due to rapid rate -refuses any further blood draws * Pica - his memory care unit states he has history of eating foreign objects cc time - 45 minutes Subjective: Patient only 70s on RA all night with tachycardia and severe dyspnea. Agitated and refusing almost everything. Pulled out IV and now no IV access. Objective: Vital Signs Temp Pulse Resp BP Pulse Ox 37 C 107 H 26 H 120/75 97 06/06/17 16:55 06/06/17 16:55 06/06/17 16:55 06/06/17 16:55 06/06/17 16:55 Microbiology 06/04/17 05:00 Urine Culture - Final Urine,Clean Catch Three [place] Types Laboratory Results 06/04/17 05:50 06/04/17 05:10 06/05/17 06/06/17 06/07/17 05:59 05:59 05:59 Intake Total 2777 210 9713 Balance 8933 980 6790 PT 16.9 SEC (12.0-15.0) H 06/03/17 23:50 INR 1.37 (0.83-1.16) H 06/03/17 23:50 d/w COLLAR FELLER Tosha Quintanilla regarding palliative care consultation - agreed to DNR CXR viewed, my personal interpretation is - poor inspiration, increased opacification on left, poor study due to positioning, possible CHF tele - intermittent rapid afib - Physical Exam Constitutional: no apparent distress, appears nourished, not in pain Cardiovascular: regular rate and rhythym, no murmur, rub, or gallop Respiratory: no rales or rhonchi, clear to auscultation, reduced air movement, respiratory distress Gastrointestinal: normoactive bowel sounds, soft, non-tender abdomen, no palpable masses Skin: no rashes or abrasions, no fluctuance, no induration Neurologic: No AAOx3 Psychiatric: encephalopathic, agitated, poor insight, poor judgement, poor memory, No interacting appropriately ICD10 Worksheet Patient Problems: Problems Problem Status Onset Atrial flutter Acute Dementia Acute Hypoxia Acute Lactic acidosis Acute Palliative care encounter Acute Pneumonia Acute Pulmonary edema Acute Sepsis Acute Tachycardia Acute Near syncope Acute
[2017-06-06] MEDS: traZODone 50 MG TAB PO SCH (22:14)
[2017-06-06] MEDS: FUROSEMIDE 20 MG/2 ML VIAL IVP SCH (22:15)
[2017-06-06] MEDS ORDERED: METOPROLOL TARTRATE 5 MG/5 ML INJ IVP ONE (22:59)
[2017-06-07] MEDS ORDERED: DILTIAZEM 25 MG/5 ML VIAL IVP ONE (00:45)
[2017-06-07] MEDS: PIPERACILLIN/TAZO 3.375 GM/DEX 50 ML IV SCH ×4 (00:45→17:51)
[2017-06-07] MEDS: DILTIAZEM 125 MG in D5W 125 ML IV SCH ×3 (00:56→16:32)
[2017-06-07 04:23] LABS: % IMMATURE GRANULYOCYTES 0.4 % (0.0-1.1); ABSOLUTE IMMATURE GRANULOCYTES 0.05 10^3/uL (0.00-0.10); ADD DIFF? NO; ADD MORPH? NO; ADD SCAN? NO; ATYPICAL LYMPHOCYTE FLAG 0 (0-99); FRAGMENT RBC FLAG 0 (0-99); HEMATOCRIT 44.6 % (40.0-51.0); HEMOGLOBIN 15.1 g/dL (13.7-17.5); LEFT SHIFT FLG 0 (0-99); LIPEMIA HEMOLYSIS FLAG 90 (0-99); MEAN CELL HEMOGLOBIN 32.1 pg (27.9-34.1); MEAN CELL HEMOGLOBIN CONCENTR. 33.9 g/dL (32.4-36.7); MEAN CELL VOLUME 94.9 fL (81.5-99.8); MEAN PLATELET VOLUME 9.4 fL (8.7-11.7); PLATELET CLUMPS FLAG 0 (0-99); PLATELET COUNT 217 10^3/uL (150-400); RED CELL DISTRIBUTION WIDTH 13.5 % (11.5-15.2)
[2017-06-07 04:40] LABS: ALANINE AMINOTRANSFERASE 54 IU/L (21-72); ALBUMIN 2.9 g/dL (3.5-5.0); ALKALINE PHOSPHATASE 53 IU/L (38-126); ANION GAP 14 mEq/L (8-16); ASPARTATE AMINOTRANSFERASE 35 IU/L (17-59); BILIRUBIN,TOTAL 0.8 mg/dL (0.1-1.4); BILIRUBIN-CONJUGATED 0.4 mg/dL (0.0-0.5); BILIRUBIN-UNCONJUGATED 0.4 mg/dL (0.0-1.1); CALCIUM 8.3 mg/dL (8.5-10.4); CARBON DIOXIDE 24 mEq/l (22-31); CHLORIDE 108 mEq/L (97-110); CREATININE 1.1 mg/dL (0.7-1.3); GLOMERULAR FILTRATION RATE > 60; GLUCOSE 173 mg/dL (70-100); POTASSIUM 3.9 mEq/L (3.5-5.2); SODIUM 146 mEq/L (134-144); TOTAL PROTEIN 5.9 g/dL (6.3-8.2)
[2017-06-07] MEDS: IPRATROPIUM/ALBUTEROL 3 ML DEYVIAL IH SCH ×3 (05:30→16:34)
[2017-06-07] MEDS: FUROSEMIDE 20 MG/2 ML VIAL IVP SCH ×3 (06:08→22:23)
[2017-06-07] MEDS: ENOXAPARIN 120 MG/0.8 ML SYR SC SCH ×2 (06:08→17:51)
[2017-06-07] MEDS: METOPROLOL TARTRATE 25 MG TAB PO SCH ×3 (10:20→20:37)
[2017-06-07] MEDS: OLANZapine 2.5 MG TAB PO SCH ×2 (10:20→20:37)
[2017-06-07] MEDS: DONEPEZIL HCL 5 MG TAB PO SCH (10:21)
[2017-06-07] MEDS ORDERED: DIGOXIN 500 MCG/2 ML AMP IVP ONE ×2 (10:36→20:00)
[2017-06-07] MEDS: METOPROLOL TARTRATE 5 MG/5 ML INJ IVP SCH ×2 (11:27→17:51)
--- NOTE | 2017-06-07 16:34 | HOSPPROG ---
Hospitalist Progress Note Assessment/Plan: DIAGNOSES: -acute sepsis -acute resp failure, hypoxemic, multifactorial -aspiration pneumonitis -diastolic chf, acute -bilateral dvt, consider possible PE as well -rapid AFib -acute encephalopathy, multifactorial -hx of advanced dementia -hx of PICA syndrome At present he is stable from yesterday. Still w some fever. He continues, due to disorientation/confusion, to be unable to cooperate with/participate in care to a large degree. PLANS: -for now continue current acute including abx and a fib measures, and supportive care -palliative care meeting today SUBJECTIVE: unable to assess symptoms due to patient's dementia/encephalopathy OBJECTIVE: vitals: intermittent low fever but temps improving overall, intermittent tachypnea card monitor: remains in a fib exam: alert very disoriented and confused, some conversation but entirely nonsensical and no sign he understands what we say mostly relaxed but seems suspicious of staff resps easy lungs clear heart irreg abd normal no edema iv site ok Objective: Vital Signs Temp Pulse Resp BP Pulse Ox 37.6 C 85 20 115/58 L 91 L 06/07/17 14:45 06/07/17 16:32 06/07/17 14:45 06/07/17 16:23 06/07/17 14:45 Microbiology 06/04/17 05:00 Urine Culture - Final Urine,Clean Catch Three [place] Types Laboratory Results 06/07/17 04:00 06/07/17 04:00 06/06/17 06/07/17 06/08/17 06:59 06:59 06:59 Intake Total 850 1370 Balance 850 1370 PT 16.9 SEC (12.0-15.0) H 06/03/17 23:50 INR 1.37 (0.83-1.16) H 06/03/17 23:50 - Time Spent With Patient Time Spent with Patient: greater than 35 minutes Time Spent with Patient: Greater than 35 minutes spent on this patients care, greater than 50% of time spent counseling, educating, and coordinating care regarding the above mentioned plan. ICD10 Worksheet Patient Problems: Problems Problem Status Onset Atrial flutter Acute Dementia Acute Hypoxia Acute Lactic acidosis Acute Palliative care encounter Acute Pneumonia Acute Pulmonary edema Acute Sepsis Acute Tachycardia Acute Near syncope Acute
[2017-06-07] MEDS: traZODone 50 MG TAB PO SCH (20:38)
--- NOTE | 2017-06-07 20:44 | GCON ---
[f rep st] CONSULTATION PULMONARY CRITICAL CARE CONSULTATION DATE OF CONSULTATION: 06/07/2017 REASON FOR CONSULTATION: Intensive care unit evaluation and management of atrial fibrillation and de mentia. HISTORY: The patient is a 66-year-old with advanced dementia living at [facility]. He was brought to the emergency room 3 days ago with rapid atrial fibrillation. He was treated on PCU, but transferred to the Intensive Care Unit late yesterday secondary to persistent rapid atrial fibri llation, and increasing hypoxemia, and an abnormal x-ray. Saturations were apparently 70% on room ai r when he was off his oxygen. He has been seen by palliative care. He is do not resuscitate. Since his transfer, he has remained in atrial fibrillation, but the rate is now slowed with further m edications given today including metoprolol and digoxin. Chest x-ray shows changes consistent with p ossible pneumonia with a right midlung infiltrate, and perhaps some lower lobe changes as well. Over all, clinically, he has been stable. PAST MEDICAL HISTORY: Remarkable for his advanced dementia, previous episodes of atrial fibrillation , and a history of sleep apnea. MEDICATIONS: On admission included only trazodone and Aricept. SOCIAL HISTORY: The patient is . Family supportive. He is a never smoker. Alcohol is denie d. He is at an Alzheimer's facility. FAMILY HISTORY: Noncontributory. REVIEW OF SYSTEMS: Unobtainable. PHYSICAL EXAMINATION: GENERAL: Reveals an elderly gentleman who is resting comfortably in bed. He is arousable, but is nonverbal. VITAL SIGNS: Blood pressure is 120/70, heart rate now 86 and irregu lar, consistent with atrial fibrillation, respiratory rate is 20. He is on nasal cannula oxygen at 3 L. HEENT: Unremarkable for lymphadenopathy or thyromegaly. There is no obvious jugular venous dis tention. He is able to eat. CHEST: Clear anteriorly. Breath sounds are diminished at the bases. There is mild pulmonary congestion without adam rhonchi. No wheezes. A few rales are present poste riorly on the right without obvious consolidation. HEART: Irregular. A systolic murmur is present. No gallop. ABDOMEN: Overweight, soft, nontender. Bowel sounds are present. EXTREMITIES: Positi ve for edema. NEUROLOGIC: Nonfocal. He moves all extremities. He is nonverbal secondary to his de mentia. LABORATORY DATA: Radiologic studies are as noted above, with a right upper lobe infiltrate, possible vascular plethora consistent with volume overload or congestive heart failure. Left lower lobe infi ltrate cannot be excluded. Venous ultrasound done on admission showed bilateral deep venous thrombosis. White blood cell count is 13,600, hematocrit 44, platelets 217,000. INR is 1.37, PTT 22, venous lact ate 1.2, sodium 146, potassium 2.9, BUN 23 with a creatinine 1.1. Glucose is 173. Liver function st udies are normal. Albumin is 2.9. Urinalysis on admission was negative. Influenza A/B was negative . ASSESSMENT: 1. Atrial fibrillation with a rapid ventricular response. This is improving. It was not responsive to diltiazem. He was given routine IV metoprolol today and 1 dose of digoxin. His rate has come do wn. Hemodynamics are stable. 2. Acute respiratory failure. This is improving. On transfer to the Intensive Care Unit yesterday, he was on an oxy mask at 15 L. He is now down to 3 L nasal cannula. His hypoxemia is multifactoria l and associated with possible aspiration and new pneumonia, congestive heart failure, volume overloa d, and possibly obesity/hypoventilation. He is on Zosyn and bronchodilator therapies. 3. Severe dementia. 4. Deep vein thrombosis. He does have bilateral DVTs. He is on full dose anticoagulation with enox aparin. 5. Volume overload. He is on Lasix, and has had an apparent good diuresis however. He has no cari ter in place, and he is incontinent. PLAN: Current therapies will be continued. Metoprolol will be continued q.6 hours for now. He can be transitioned over to higher dose oral metoprolol tomorrow. Digoxin will be repeated at 250 mcg to night with a level checked in the morning. Diltiazem will be stopped, as he appeared to fail this. Zosyn and bronchopulmonary therapies will be continued. His usual medications will be continued. Further plans and recommendations will be made based on his progress over the next 12-24 hours. /[id number]/MODL
[2017-06-08] MEDS: PIPERACILLIN/TAZO 3.375 GM/DEX 50 ML IV SCH ×4 (00:06→17:16)
[2017-06-08] MEDS: METOPROLOL TARTRATE 5 MG/5 ML INJ IVP SCH ×4 (00:07→17:15)
[2017-06-08] MEDS: IPRATROPIUM/ALBUTEROL 3 ML DEYVIAL IH SCH ×2 (00:12→05:58)
[2017-06-08] MEDS: FUROSEMIDE 20 MG/2 ML VIAL IVP SCH (05:45)
[2017-06-08] MEDS: ENOXAPARIN 120 MG/0.8 ML SYR SC SCH (05:45)
[2017-06-08 06:06] LABS: HEMATOCRIT 42.3 % (40.0-51.0); HEMOGLOBIN 14.1 g/dL (13.7-17.5); MEAN CELL HEMOGLOBIN 31.2 pg (27.9-34.1); MEAN CELL HEMOGLOBIN CONCENTR. 33.3 g/dL (32.4-36.7); MEAN CELL VOLUME 93.6 fL (81.5-99.8); RED BLOOD CELL COUNT 4.52 10^6/uL (4.40-6.38); RED CELL DISTRIBUTION WIDTH 13.6 % (11.5-15.2)
[2017-06-08 06:20] LABS: ANION GAP 12 mEq/L (8-16); CALCIUM 8.6 mg/dL (8.5-10.4); CARBON DIOXIDE 28 mEq/l (22-31); CHLORIDE 106 mEq/L (97-110); CREATININE 1.2 mg/dL (0.7-1.3); DIGOXIN 0.7 ng/mL (0.8-2.0); GLOMERULAR FILTRATION RATE > 60; GLUCOSE 163 mg/dL (70-100); MAGNESIUM 2.3 mg/dL (1.6-2.3); POTASSIUM 3.8 mEq/L (3.5-5.2); SODIUM 146 mEq/L (134-144)
[2017-06-08] MEDS: DONEPEZIL HCL 5 MG TAB PO SCH (09:41)
[2017-06-08] MEDS: OLANZapine 2.5 MG TAB PO SCH ×2 (09:41→21:32)
[2017-06-08] MEDS: METOPROLOL TARTRATE 25 MG TAB PO SCH (09:41)
[2017-06-08] MEDS ORDERED: APIXABAN 5 MG TAB PO SCH (11:00)
[2017-06-08] MEDS: APIXABAN 5 MG TAB PO SCH ×2 (11:37→21:31)
[2017-06-08] MEDS ORDERED: METOPROLOL TARTRATE 5 MG/5 ML INJ IVP ONE (14:19)
[2017-06-08] MEDS ORDERED: DIGOXIN 500 MCG/2 ML AMP IVP ONE ×2 (14:19→17:21)
--- NOTE | 2017-06-08 14:51 | PDINTPN ---
Carbide Powder Processor Progress Note Assessment/Plan: Assessment: 66-year-old gentleman with severe dementia admitted 06/06 with hypoxemia and atrial fibrillation. Aspiration pneumonia/hypoxemia. Chest x-ray is improving. Oxygen requirements back down close to his baseline of 4 L. On Zosyn and bronchopulmonary therapies. Pulmonary status appears stable. Atrial fibrillation with rapid ventricular response. Rate has been quite variable, high again this morning. We are trying to transition to oral medications. Will give an additional dose of IV digoxin now and 5 mg of IV metoprolol. He may need more of both. Blood pressure tolerates his rapid rates relatively well. Severe dementia: Nonverbal. Lives at a memory care facility. DVT: Bilateral. Present on admission. Transitioning to Eliquis today. Volume overload: Improving, on Lasix. Nutrition: Eating. Plan: Continue care in the intensive care unit for now. Re-dose with IV metoprolol and digoxin, follow heart rate. Transition to Eliquis. Continue Lasix. Began to look at disposition issues. His debility from dementia may prevent him from going back to his memory care unit? Subjective: Nonverbal, appears comfortable. Takes oxygen off. Back and rapid atrial fibrillation. Objective: Vital Signs Temp Pulse Resp BP Pulse Ox 37.8 C 144 H 20 103/65 95 06/08/17 12:00 06/08/17 14:44 06/08/17 14:00 06/08/17 14:44 06/08/17 14:00 Laboratory Results 06/08/17 06:00 06/08/17 06:00 06/07/17 06/08/17 06/09/17 05:59 05:59 05:59 Intake Total 1370 2249 600 Balance 1370 2249 600 PT 16.9 SEC (12.0-15.0) H 06/03/17 23:50 INR 1.37 (0.83-1.16) H 06/03/17 23:50 Laboratory Tests 06/08/17 06:00 Calcium 8.6 Magnesium 2.3 Digoxin 0.7 L Physical Exam - Physical Exam General Appearance: obese, other (Somnolent, arouses) EENT: PERRL/EOMI, other (OxyMask in place some of the time at 6 L.) Neck: normal inspection (Large neck, JVD heart evaluate.) Respiratory: lungs clear, decreased breath sounds (At bases), No rales, No rhonchi Cardiac/Chest: irregularly irregular (Approximately 140 currently.), No regular rate, rhythm Abdomen: normal bowel sounds, non-tender, soft (Obese) Male Genitalia: other (Incontinent of urine) Skin: normal color, warm/dry Extremities: pedal edema Neuro/Psych: no motor/sensory deficits (Moves all extremities equally), cognition abnormalities (Chronic, severe dementia, nonverbal) ICD10 Worksheet Patient Problems: Problems Problem Status Onset Dementia Acute Near syncope Acute Lactic acidosis Acute Hypoxia Acute Pneumonia Acute Tachycardia Acute Sepsis Acute Atrial flutter Acute Pulmonary edema Acute Palliative care encounter Acute
--- NOTE | 2017-06-08 15:54 | HOSPPROG ---
Hospitalist Progress Note Assessment/Plan: DIAGNOSES: -acute sepsis -acute resp failure, hypoxemic, multifactorial -aspiration pneumonitis -diastolic chf, acute -bilateral dvt, consider possible PE as well -rapid AFib -acute encephalopathy, multifactorial -hx of advanced dementia -hx of PICA syndrome Again he is stable overall but remains extremely weak and debilitated, confused , unwilling to participate in or accept most nursing/medical care PLANS: -increase rate control meds -continue supportive care -DC planning SUBJECTIVE: again unable to assess symptoms due to patient's dementia/encephalopathy OBJECTIVE: vitals: intermittent low fever but temps improving overall, intermittent tachypnea card monitor: remains in a fib with intermittent rapid rate exam: alert very disoriented and confused, some conversation but entirely nonsensical and no sign he understands what we say mostly relaxed but seems suspicious of staff resps easy lungs clear heart irreg abd normal no edema iv site ok Objective: Vital Signs Temp Pulse Resp BP Pulse Ox 37.8 C 144 H 20 103/65 95 06/08/17 12:00 06/08/17 14:44 06/08/17 14:00 06/08/17 14:44 06/08/17 14:00 Laboratory Results 06/08/17 06:00 06/08/17 06:00 06/07/17 06/08/17 06/09/17 06:59 06:59 06:59 Intake Total 1370 2249 600 Balance 1370 2249 600 PT 16.9 SEC (12.0-15.0) H 06/03/17 23:50 INR 1.37 (0.83-1.16) H 06/03/17 23:50 ICD10 Worksheet Patient Problems: Problems Problem Status Onset Atrial flutter Acute Dementia Acute Hypoxia Acute Lactic acidosis Acute Palliative care encounter Acute Pneumonia Acute Pulmonary edema Acute Sepsis Acute Tachycardia Acute Near syncope Acute
[2017-06-08] MEDS ORDERED: METOPROLOL TARTRATE 25 MG TAB PO SCH (21:00)
[2017-06-08] MEDS: traZODone 50 MG TAB PO SCH (21:32)
[2017-06-08] MEDS: METOPROLOL TARTRATE 50 MG TAB PO SCH (21:32)
[2017-06-09] MEDS: PIPERACILLIN/TAZO 3.375 GM/DEX 50 ML IV SCH ×5 (00:22→23:52)
[2017-06-09] MEDS: METOPROLOL TARTRATE 5 MG/5 ML INJ IVP PRN ×3 (04:13→18:58)
[2017-06-09 05:56] LABS: % IMMATURE GRANULYOCYTES 0.5 % (0.0-1.1); ABSOLUTE IMMATURE GRANULOCYTES 0.07 10^3/uL (0.00-0.10); ADD DIFF? NO; ADD MORPH? NO; ADD SCAN? NO; ATYPICAL LYMPHOCYTE FLAG 10 (0-99); FRAGMENT RBC FLAG 0 (0-99); HEMOGLOBIN 13.1 g/dL (13.7-17.5); LEFT SHIFT FLG 10 (0-99); LIPEMIA HEMOLYSIS FLAG 80 (0-99); MEAN CELL HEMOGLOBIN 31.7 pg (27.9-34.1); MEAN CELL HEMOGLOBIN CONCENTR. 33.6 g/dL (32.4-36.7); MEAN CELL VOLUME 94.4 fL (81.5-99.8); MEAN PLATELET VOLUME 9.3 fL (8.7-11.7); PLATELET CLUMPS FLAG 10 (0-99); PLATELET COUNT 303 10^3/uL (150-400); RED BLOOD CELL COUNT 4.13 10^6/uL (4.40-6.38); RED CELL DISTRIBUTION WIDTH 13.4 % (11.5-15.2)
[2017-06-09 06:17] LABS: ANION GAP 12 mEq/L (8-16); CALCIUM 8.5 mg/dL (8.5-10.4); CARBON DIOXIDE 28 mEq/l (22-31); CHLORIDE 107 mEq/L (97-110); DIGOXIN 2.7 ng/mL (0.8-2.0); GLOMERULAR FILTRATION RATE > 60; GLUCOSE 159 mg/dL (70-100); MAGNESIUM 2.3 mg/dL (1.6-2.3); POTASSIUM 4.1 mEq/L (3.5-5.2); SODIUM 147 mEq/L (134-144)
[2017-06-09] MEDS ORDERED: METOPROLOL TARTRATE 5 MG/5 ML INJ IVP ONE ×2 (07:45→15:00)
[2017-06-09] MEDS: APIXABAN 5 MG TAB PO SCH ×2 (09:24→21:16)
[2017-06-09] MEDS: DONEPEZIL HCL 5 MG TAB PO SCH (09:24)
[2017-06-09] MEDS: OLANZapine 2.5 MG TAB PO SCH ×2 (09:24→21:18)
[2017-06-09] MEDS: METOPROLOL TARTRATE 50 MG TAB PO SCH ×2 (09:24→21:17)
[2017-06-09] MEDS: FUROSEMIDE 40 MG TAB PO SCH (09:25)
[2017-06-09] MEDS ORDERED: DIGOXIN 500 MCG/2 ML AMP IVP SCH (10:00)
--- NOTE | 2017-06-09 11:01 | PDINTPN ---
Embedded Software Architect Progress Note Assessment/Plan: Assessment/Plan: * Aspiration pneumonia/hypoxemia. Pulmonary status appears stable. * Atrial fibrillation with rapid ventricular response. Rate has been quite variable, high again this morning. We are trying to transition to oral medications. Will give an additional dose of IV digoxin now and 5 mg of IV metoprolol. He may need more of both. Blood pressure tolerates his rapid rates relatively well. * Severe dementia: Nonverbal. Lives at a memory care facility. * DVT: Bilateral. Present on admission. Transitioning to Eliquis today. * Volume overload: Improving, on Lasix. * Nutrition: Eating. Subjective: Sitting up in chair. Appears comfortable. Nonverbal. Objective: Vital Signs Temp Pulse Resp BP Pulse Ox 36.8 C 74 25 H 109/57 L 96 06/09/17 09:59 06/09/17 09:59 06/09/17 09:59 06/09/17 09:59 06/09/17 09:59 Laboratory Results 06/09/17 05:30 06/09/17 05:30 06/08/17 06/09/17 06/10/17 05:59 05:59 05:59 Intake Total 2249 954 620 Balance 2249 954 620 PT 16.9 SEC (12.0-15.0) H 06/03/17 23:50 INR 1.37 (0.83-1.16) H 06/03/17 23:50 Physical Exam - Physical Exam General Appearance: alert, other (Nonverbal) EENT: PERRL/EOMI Neck: non-tender, full range of motion Respiratory: chest non-tender, lungs clear Cardiac/Chest: normal peripheral pulses, regular rate, rhythm, systolic murmur Peripheral Pulses: 2+: carotid (R), carotid (L), femoral (R), femoral (L), dorsalis-pedis (R), dorsalis-pedis (L) Abdomen: normal bowel sounds, non-tender, soft Male Genitalia: deferred Rectal: deferred Skin: normal color, warm/dry Extremities: normal range of motion, non-tender, normal inspection, normal capillary refill Neuro/Psych: other (Awake) ICD10 Worksheet Patient Problems: Problems Problem Status Onset Atrial flutter Acute Dementia Acute Hypoxia Acute Lactic acidosis Acute Palliative care encounter Acute Pneumonia Acute Pulmonary edema Acute Sepsis Acute Tachycardia Acute Near syncope Acute
--- NOTE | 2017-06-09 12:50 | ASMTCMCOM ---
CM Note CM Note Notes: Severe Alzheimer's- Patient is a big strong man, very confused and fearful. Contacted [facility] to see if he might be able to return with more assist and asked if they could come and assess him? He was mobile at the [facility] but needed direction there, they could direct him to bathrooms. Sent referral to [facility] to review. Therapies and MD recommending SNF. This CM concerned that a new environment will add to his confusion and combativeness. Left message for his -haven't heard back from her as yet. Date Signed: 06/09/2017 12:49 PM Electronically Signed By:Jacqueline Hernandez LCSW
--- NOTE | 2017-06-09 13:51 | HOSPPROG ---
Hospitalist Progress Note Assessment/Plan: DIAGNOSES: -acute sepsis -acute resp failure, hypoxemic, multifactorial -aspiration pneumonitis -diastolic chf, acute -bilateral dvt, consider possible PE as well -rapid AFib -acute encephalopathy, multifactorial -hx of advanced dementia -hx of PICA syndrome Remains stable overall, regaining some strength but remains quite debilitated, confused, unwilling to participate in or accept most nursing/medical care He continues to have poor rate control w his a fib reviewed w Dr Mckeon seen also on multidisc rounds PLANS: -increase rate control meds further -continue supportive care -DC planning SUBJECTIVE: again unable to assess symptoms due to patient's dementia/encephalopathy OBJECTIVE: vitals: intermittent low fever but temps improving overall, intermittent tachypnea card monitor: remains in a fib with intermittent rapid rate exam: alert very disoriented and confused, some conversation but entirely nonsensical and no sign he understands what we say mostly relaxed but seems suspicious of staff resps easy lungs clear heart irreg abd normal no edema iv site ok Objective: Vital Signs Temp Pulse Resp BP Pulse Ox 37.3 C 81 24 H 115/75 94 06/09/17 12:00 06/09/17 12:00 06/09/17 12:00 06/09/17 12:00 06/09/17 12:00 Laboratory Results 06/09/17 05:30 06/09/17 05:30 06/08/17 06/09/17 06/10/17 06:59 06:59 06:59 Intake Total 2249 954 620 Balance 2249 954 620 PT 16.9 SEC (12.0-15.0) H 06/03/17 23:50 INR 1.37 (0.83-1.16) H 06/03/17 23:50 - Time Spent With Patient Time Spent with Patient: greater than 35 minutes Time Spent with Patient: Greater than 35 minutes spent on this patients care, greater than 50% of time spent counseling, educating, and coordinating care regarding the above mentioned plan. ICD10 Worksheet Patient Problems: Problems Problem Status Onset Atrial flutter Acute Dementia Acute Hypoxia Acute Lactic acidosis Acute Palliative care encounter Acute Pneumonia Acute Pulmonary edema Acute Sepsis Acute Tachycardia Acute Near syncope Acute
--- NOTE | 2017-06-09 15:44 | ASMTCMCOM ---
CM Note CM Note Notes: Contacted daughter, Ladonna, re: possible memory LTC placements. [facility] Both facilities have locked units and male bed availability. [facility] contacted, they have a locked assisted living memory care unit and couldn't take someone who is incontinent of bowel. [facility] is here to assess. Date Signed: 06/09/2017 03:43 PM Electronically Signed By:Jacqueline Hernandez LCSW
[2017-06-09] MEDS: traZODone 50 MG TAB PO SCH (21:18)
[2017-06-10] MEDS: PIPERACILLIN/TAZO 3.375 GM/DEX 50 ML IV SCH ×3 (05:52→17:44)
[2017-06-10] MEDS: METOPROLOL TARTRATE 5 MG/5 ML INJ IVP PRN (06:07)
[2017-06-10] MEDS ORDERED: AMIODARONE HCL 100 ML IV ONE (08:35)
[2017-06-10] MEDS ORDERED: AMIODARONE HCL 200 ML IV ONE (08:35)
[2017-06-10] MEDS: FUROSEMIDE 40 MG TAB PO SCH ×2 (09:28→09:54)
[2017-06-10] MEDS: APIXABAN 5 MG TAB PO SCH ×3 (09:28→22:22)
[2017-06-10] MEDS: METOPROLOL TARTRATE 50 MG TAB PO SCH ×3 (09:28→22:22)
[2017-06-10] MEDS: DONEPEZIL HCL 5 MG TAB PO SCH ×2 (09:29→09:54)
[2017-06-10] MEDS: OLANZapine 2.5 MG TAB PO SCH ×3 (09:29→22:22)
--- NOTE | 2017-06-10 09:35 | PDINTPN ---
Correctional Manager Progress Note Assessment/Plan: Assessment/Plan: * Aspiration pneumonia/hypoxemia. Pulmonary status appears stable. * Atrial fibrillation with rapid ventricular response. Rate in the 150s. -agree with starting amiodarone * Severe dementia: Nonverbal. Lives at a memory care facility. * DVT: Bilateral. Present on admission. Transitioning to Eliquis today. * Volume overload: Improving, on Lasix. * Nutrition: Eating. Subjective: Resting comfortably. Continues nonverbal. Objective: Vital Signs Temp Pulse Resp BP Pulse Ox 36.8 C 150 H 20 123/68 H 90 L 06/10/17 07:52 06/10/17 09:28 06/10/17 07:52 06/10/17 09:28 06/10/17 07:52 Laboratory Results 06/09/17 05:30 06/09/17 05:30 06/09/17 06/10/17 06/11/17 05:59 05:59 05:59 Intake Total 954 1140 180 Balance 954 1140 180 PT 16.9 SEC (12.0-15.0) H 06/03/17 23:50 INR 1.37 (0.83-1.16) H 06/03/17 23:50 Physical Exam - Physical Exam General Appearance: alert, other (Awake but nonverbal) EENT: PERRL/EOMI, normal ENT inspection Neck: non-tender, full range of motion Respiratory: chest non-tender, lungs clear, normal breath sounds Cardiac/Chest: tachycardia Peripheral Pulses: 2+: carotid (R), carotid (L), femoral (R), femoral (L), dorsalis-pedis (R), dorsalis-pedis (L) Abdomen: normal bowel sounds, non-tender, soft Male Genitalia: deferred Rectal: deferred Skin: normal color, warm/dry Neuro/Psych: other (Awake) ICD10 Worksheet Patient Problems: Problems Problem Status Onset Atrial flutter Acute Dementia Acute Hypoxia Acute Lactic acidosis Acute Palliative care encounter Acute Pneumonia Acute Pulmonary edema Acute Sepsis Acute Tachycardia Acute Near syncope Acute
--- NOTE | 2017-06-10 12:38 | HOSPPROG ---
Hospitalist Progress Note Assessment/Plan: DIAGNOSES: -acute sepsis -acute resp failure, hypoxemic, multifactorial -aspiration pneumonitis -diastolic chf, acute -bilateral dvt, consider possible PE as well -rapid AFib -acute encephalopathy, multifactorial -hx of advanced dementia -hx of PICA syndrome Remains stable overall, regaining some strength but remains quite debilitated, confused, unwilling to participate in or accept most nursing/medical care He continues to have poor rate control w his a fib despite increasing BB and did not respond to dilt; reviewed w Dr Mckeon seen also on multidisc rounds PLANS: -will give trial of amiodarone, continue current metoprolol -continue supportive care -continue DC planning SUBJECTIVE: a bit more interactive and states he has no pain or dyspnea, no nausea, but no other discussion he will engage in OBJECTIVE: vitals: no fever, now mostly in raid A fib in 140s card monitor: remains in a fib with now persistant rapid rate exam: alert very disoriented and confused, some conversation but entirely nonsensical and no sign he understands what we say mostly relaxed but seems suspicious of staff resps easy lungs clear heart irreg abd normal no edema iv site ok Objective: Vital Signs Temp Pulse Resp BP Pulse Ox 36.4 C 105 H 18 119/75 96 06/10/17 11:52 06/10/17 11:52 06/10/17 11:52 06/10/17 11:52 06/10/17 11:52 Laboratory Results 06/09/17 05:30 06/09/17 05:30 06/09/17 06/10/17 06/11/17 06:59 06:59 06:59 Intake Total 954 1140 180 Balance 954 1140 180 PT 16.9 SEC (12.0-15.0) H 06/03/17 23:50 INR 1.37 (0.83-1.16) H 06/03/17 23:50 ICD10 Worksheet Patient Problems: Problems Problem Status Onset Atrial flutter Acute Dementia Acute Hypoxia Acute Lactic acidosis Acute Palliative care encounter Acute Pneumonia Acute Pulmonary edema Acute Sepsis Acute Tachycardia Acute Near syncope Acute
[2017-06-10] MEDS ORDERED: AMIODARONE HCL 540 MG in D5W 300 ML IV ONE (15:30)
--- NOTE | 2017-06-10 17:31 | ASMTCMCOM ---
CM Note CM Note Notes: Morning Justin Mobley felt that patient was at a higher acuity need and could benefit from rehab before returning to their facility. [facility] has not gotten back with me. [facility] feels that they will have a bed available Friday in their memory care unit. They will know for sure Friday AM and [facility] will call to let us know. Patient can have his room on memory care which is secured and go to the rehab unit for rehab. This info given to patient's daughter who will go tour [facility] Friday. Possible discharge Friday? Date Signed: 06/10/2017 05:30 PM Electronically Signed By:Jacqueline Hernandez LCSW
[2017-06-10] MEDS: traZODone 50 MG TAB PO SCH (22:22)
[2017-06-11] MEDS: PIPERACILLIN/TAZO 3.375 GM/DEX 50 ML IV SCH ×2 (02:14→05:48)
[2017-06-11 07:44] VITALS: RESP 20; TEMP 98.3
--- NOTE | 2017-06-11 08:51 | PDINTPN ---
Machine Maintenance Technician Progress Note Assessment/Plan: Assessment/Plan: * Aspiration pneumonia/hypoxemia-stable * Atrial fibrillation with rapid ventricular response. Scroll to -continue amiodarone * Severe dementia: Nonverbal. Lives at a memory care facility. * DVT: Bilateral. Present on admission. * Volume overload: Improving, on Lasix. * Nutrition: Eating. * Disposition-unclear at this time. Subjective: Sitting up in chair feeding himself. Still nonverbal. Objective: Vital Signs Temp Pulse Resp BP Pulse Ox 36.8 C 80 20 103/65 85 L 06/11/17 07:40 06/11/17 07:40 06/11/17 07:40 06/11/17 08:44 06/11/17 07:40 Laboratory Results 06/09/17 05:30 06/09/17 05:30 06/10/17 06/11/17 06/12/17 05:59 05:59 05:59 Intake Total 1140 1844 Balance 1140 1844 PT 16.9 SEC (12.0-15.0) H 06/03/17 23:50 INR 1.37 (0.83-1.16) H 06/03/17 23:50 Physical Exam - Physical Exam General Appearance: WD/WN, no apparent distress EENT: PERRL/EOMI Neck: non-tender, full range of motion, supple, normal inspection Respiratory: chest non-tender, lungs clear, normal breath sounds Cardiac/Chest: normal peripheral pulses, regular rate, rhythm, systolic murmur Abdomen: normal bowel sounds, non-tender, soft Male Genitalia: deferred Rectal: deferred Skin: normal color, warm/dry Extremities: normal range of motion, non-tender, normal inspection, normal capillary refill Neuro/Psych: alert ICD10 Worksheet Patient Problems: Problems Problem Status Onset Atrial flutter Acute Dementia Acute Hypoxia Acute Lactic acidosis Acute Palliative care encounter Acute Pneumonia Acute Pulmonary edema Acute Sepsis Acute Tachycardia Acute Near syncope Acute
[2017-06-11] MEDS: METOPROLOL TARTRATE 50 MG TAB PO SCH (09:07)
[2017-06-11] MEDS: DONEPEZIL HCL 5 MG TAB PO SCH (09:08)
[2017-06-11] MEDS: APIXABAN 5 MG TAB PO SCH (09:08)
[2017-06-11] MEDS: OLANZapine 2.5 MG TAB PO SCH (09:08)
[2017-06-11] MEDS: FUROSEMIDE 40 MG TAB PO SCH (09:08)
[2017-06-11] MEDS ORDERED: AMIODARONE HCL 200 MG TAB PO SCH (12:15)
--- NOTE | 2017-06-11 12:19 | PDIAF ---
- Diagnosis Diagnosis: dementia, a fib, aspiration pneumonia, chf Code Status: Do Not Resuscitate - Medication Management Discharge Medications: Medications to Continue on Transfer traZODone [traZODONE 50MG (*)] 50 mg PO HS 06/04/17 [Last Taken 06/03/17] Amiodarone HCl [Pacerone (*)] 200 mg PO DAILY tab 06/11/17 [Last Taken Unknown] Amiodarone HCl [Pacerone (*)] 400 mg PO DAILY tab 06/11/17 [Last Taken Unknown] Apixaban [Eliquis] 5 mg PO BID tab 06/11/17 [Last Taken Unknown] Apixaban [Eliquis] 10 mg PO BID tab 06/11/17 [Last Taken Unknown] Furosemide [Lasix 20 MG (*)] 20 mg PO DAILY #1 tab 06/11/17 [Last Taken Unknown] Metoprolol Tartrate [Lopressor 50 mg (*)] 50 mg PO BID tab 06/11/17 [Last Taken Unknown] OLANZapine [ZyPREXA 2.5 mg (*)] 2.5 mg PO BID tab 06/11/17 [Last Taken Unknown] Discharge Medications: Refer to the Discharge Home Medication list for PRN reason. PICC Care - Routine: N/A - Orders Services needed: Registered Nurse, Certified Calender Let Off Helper, Master Digital Imager , Physical Therapy, Occupational Therapy, Speech Language Pathologist Diet Recommendation: no restrictions on diet Diet Texture: Regular Texture Diet, Meds Whole w/Liquids Additional: Medication Changes: Amiodarone 400 mg daily, change to 200 mg daily on Jun 18. Eliquis 10 mg bid thru 06/15, then 5 mg bid after that - Labs/Radiology BMP Date: 06/18/17 - Follow Up Care Current Providers and Referrals: Crista Pack MD [Primary Care Provider] - As per Instructions
--- NOTE | 2017-06-11 12:24 | PDDCSUM ---
Discharge Summary Discharge Summary: DISCHARGE -acute sepsis -acute resp failure, hypoxemic, multifactorial -aspiration pneumonitis -diastolic chf, acute -bilateral dvt, consider possible PE as well -rapid AFib -acute encephalopathy, multifactorial -hx of advanced dementia -hx of PICA syndrome DIAGNOSES: CONSULTANTS: Dr. Darinel Mckeon, Dr. Jeremy Mendoza, Dr. Lorna Tovar PROCEDURES: PICC catheter insertion, uncomplicated HOSPITAL COURSE SUMMARY: This patient came into the hospital with fevers and worse confusion than usual. He lives at a local assisted care facility with his and has advanced dementia and known dysphagia and gait instability. The patient was found to have evidence of aspiration pneumonia, acute sepsis, and also some evidence of CHF. Is admitted to the hospital and resuscitated with fluids, given antibiotics and respiratory care. In terms of respiratory issues he improved quite nicely and his sepsis resolved very quickly. He then required some diuresis after this. He did have atrial fibrillation and had rapid ventricular response with this. We tried various measures for treating his tachycardia but were unable to control the atrial fibrillation very well with rate control medications. Was elected as he was on chronic anticoagulation to give a trial of some amiodarone which converted him very nicely back to sinus rhythm. He is now quite stable from a cardio and pulmonary standpoint. He has really a complete dependence on staff for basically all activities, is bed-bound, and is not really very far from his baseline at this point. He has a an intermittent willingness to participate in and except medical and nursing care. He is not really able to understand any conversation so were not able to talk to him about these issues. We had extensive discussions with his . His wished for him to try and be able to come back to [facility] with her but he really has much more need think can be met by staff at [facility] this time. Whether not he will eventually be able to get back to [facility] will have to see over time but I suspect he will probably never really could come back to a place where that is a truly safe place for him. At this point he will be transferred to a halfway facility for further therapies and recuperation to see how much improvement he can get. PENDING TEST RESULTS: None MEDICATION CHANGES: Addition of amiodarone, addition of Lasix, discontinuation of Aricept, increased dose of metoprolol FOLLOW-UP PLAN: He is being transferred to halfway facility today for further rehabilitation and physical occupational therapies for ambulation and safety Greater than 35 minutes bedside and care coordination time today
[2017-06-11 12:38] VITALS: BP 115/49; PULSE 73; O2SAT 96
--- NOTE | 2017-06-11 12:46 | ASMTCMCOM ---
CM Note CM Note Notes: CM Discharge Note: Patient will go to [facility] today @ 1400. Transport via [facility]. I spoke with his daughter Ladonna and let her know the discharge plan. All final paperwork faxed to facility. MARCUS Garcia to call report. Date Signed: 06/11/2017 12:46 PM Electronically Signed By:Chelly Rosales RN
[2017-06-15] MEDS ORDERED: APIXABAN 5 MG TAB PO SCH (09:00)
[2017-06-18] MEDS ORDERED: AMIODARONE HCL 200 MG TAB PO SCH (09:00)
== END 2017-06-11 14:10 | DRG 871 ==
LOC: F2N 06-04 03:57 → F2W 06-04 21:25 → F2N 06-06 16:36
PROVIDERS: ADMIT Family Medicine; ATTEND Internal Medicine
PROC: 02HV33Z Insertion of Infusion Device into Superior Vena Cava, Percutaneous Approach (ICD-10-PCS; principal; 2017-06-06)
DX: A41.9 Sepsis, unspecified organism (principal); J69.0 Pneumonitis due to inhalation of food and vomit; J96.21 Acute and chronic respiratory failure with hypoxia; G93.41 Metabolic encephalopathy; I50.33 Acute on chronic diastolic (congestive) heart failure; F03.90 Unspecified dementia, unspecified severity, without behavioral disturbance, psychotic disturbance, mood disturbance, and anxiety; I82.4Z3 Acute embolism and thrombosis of unspecified deep veins of distal lower extremity, bilateral; I48.91 Unspecified atrial fibrillation; I48.92 Unspecified atrial flutter; G47.33 Obstructive sleep apnea (adult) (pediatric); E78.5 Hyperlipidemia, unspecified; E66.01 Morbid (severe) obesity due to excess calories; Z68.37 Body mass index [BMI] 37.0-37.9, adult; Z66 Do not resuscitate; Z51.5 Encounter for palliative care
CPT/HCPCS: 82947-QW; 92610-GN; 96365; 97162-GP; 97166-GO; 97530-GP; C1751; G8978-GP-CK; G8979-GP-CJ; G8987-GO-CM; G8988-GO-CM; G8989-GO-CM; G8996-GN-CH; G8997-GN-CH; G8998-GN-CH; J0282; J1160; J1650; J1940; J2060; J2543; J3370; Q9967